=== PATIENT | male | born 1950 | race Caucasian/White ===

== ENCOUNTER → 2016-11-25 | Outpatient (CLI) | payer MEDICARE ==
[2016-11-25 13:17] LABS: Blood Urea Nitrogen 23 mg/dL (9-20); Non-African American GFR(MDRD) >60 (>60 ml/min/1.73 sqM)
--- NOTE | 2016-11-25 15:34 | CT ---
EXAMINATION TYPE: CT angio thoracic/abd aorta DATE OF EXAM: 11/25/2016 2:22 PM COMPARISON: CTA chest September 26, 2015. Additional CT chest November 24, 2015. HISTORY: Dissection of abdominal aorta per order. Known aneurysm progress study. CT DLP: 993.00 mGycm. Automated Exposure Control for Dose Reduction was Utilized. CONTRAST: CTA scan of the entire aorta is performed without oral and without and with IV Contrast, patient inje cted with 100 ml mL of Omnipaque 350. Three-D reconstructed images are created on independent worksta tion and reviewed. FINDINGS: VASCULAR: Ascending aorta measures 3.6 x 3.8 cm in diameter on axial image 29 felt stable from prior. Descending thoracic aorta measures 3.1 cm in diameter felt stable from prior. There is patent three- vessel origin from aortic arch redemonstrated. No significant plaque in the thoracic aorta is present . There is patent celiac axis, SMA, bilateral single renal arteries, and EPHRAIM identified. There is paten t common iliac arteries bilaterally extending into external and internal iliac arteries bilaterally e xtending to common femoral arteries bilaterally without significant plaque or stenosis. No linear hypodensity to suggest dissection is present. LUNGS: The lungs are predominantly clear, there is no concerning parenchymal mass or nodule identifi ed. There is no pleural effusion or pneumothorax seen. The tracheobronchial tree is patent. MEDIASTINUM: There are no new greater than 1 cm noncalcified hilar or mediastinal lymph nodes. There are stable calcified right hilar lymph nodes. No pericardial effusion is seen. Mild cardiomegaly is redemonstrated. Coronary artery calcification is again seen. There is 1.5 x 1.4 cm low dense round l esion left anterior superior mediastinum just below thyroid gland on axial image 11 with [place] u nits averaging 22, differential includes parathyroid adenoma, low dense adenopathy, or cystic fluid c ollection such as duplication cyst. Stability from prior exam suggesting benign or cystic etiology. OTHER: No additional significant abnormality is seen. LIVER/GB: No significant abnormality is appreciated. PANCREAS: No significant abnormality is seen. SPLEEN: No significant abnormality is seen. ADRENALS: No significant abnormality is seen. KIDNEYS: No significant abnormality is seen. BOWEL: Sigmoid colonic diverticulosis is present. GENITAL ORGANS: No gross abnormality is seen. LYMPH NODES: No greater than 1cm abdominal or pelvic lymph nodes are appreciated. OSSEOUS STRUCTURES: Multilevel spurring in the spine is seen. OTHER: There is stable small sized fat-containing umbilical hernia. IMPRESSION: Stable 3.8 cm ectasia to the ascending aorta. No dissection is evident.
== END | disposition home or self-care (01) ==
LOC: RADCTMAIN 12:28
PROVIDERS: ATTEND Internal Medicine Interventional Cardiology
DX: I77.810 Thoracic aortic ectasia (principal)
CPT/HCPCS: 82565; 84520; 75635; 71275; 36415; Q9967

== ENCOUNTER → 2018-02-16 | Outpatient (CLI) | payer MEDICARE ==
[2018-02-16 09:50] LABS: Blood Urea Nitrogen 24 mg/dL (9-20)
--- NOTE | 2018-02-16 12:34 | CT ---
EXAMINATION TYPE: CT angio chest DATE OF EXAM: 02/16/2018 COMPARISON: Previous exams dating to 09/26/2015 HISTORY: Patient has no complaints at time of study. Follow up study for known thoracic aortic aneury sm. CT DLP: 656 mGycm Automated exposure control for dose reduction was used. CONTRAST: CTA scan of the thorax is performed with IV Contrast, patient injected with 100 mL of Isovue 370, pul monary embolism protocol. MIP images are created and reviewed. 3D reconstructed images are created on an independent workstation and reviewed. FINDINGS: LUNGS: The lungs are grossly clear, there is no concerning parenchymal mass or nodule identified. T here is no pleural effusion or pneumothorax seen. The tracheobronchial tree is patent. AORTA: No additional interval change is seen. Ascending aorta again measures approximately 3.8 cm, p roximal descending aorta approximately 3.8 cm. No evident dissection. Aortic root approximately 3.9 c m. Heart is enlarged. Celiac access, superior mesenteric artery, proximal right renal artery are bradley nt. There are 3 super aortic branch vessels. Left and right subclavian, innominate, left and right co mmon carotid arteries are patent proximally. MEDIASTINUM: There is satisfactory enhancement of the pulmonary artery and its branches, there is no CT evidence for pulmonary embolism. There are no greater than 1 cm hilar or mediastinal lymph nodes. No pericardial effusion is seen. OTHER: Cystic focus measuring 17 mm present at the level of the sternoclavicular joint is not signif icantly changed immediately inferior to the thyroid gland. There is a small hiatal hernia present. IMPRESSION: ESSENTIALLY STABLE FINDINGS.
== END | disposition home or self-care (01) ==
LOC: RADCTMAIN 09:13
PROVIDERS: ATTEND Internal Medicine Interventional Cardiology
DX: I71.2 Thoracic aortic aneurysm, without rupture (principal)
CPT/HCPCS: 82565; 84520; 71275; 36415; Q9967

== ENCOUNTER → 2018-04-30 | Outpatient (CLI) | payer MEDICARE ==
--- NOTE | 2018-04-30 17:11 | XR ---
EXAMINATION TYPE: XR ankle complete LT DATE OF EXAM: 04/30/2018 COMPARISON: NONE HISTORY: Ankle pain TECHNIQUE: 3 views FINDINGS: There is an Achilles calcaneal spur. Ankle mortise is anatomic. I see no fracture nor dislo cation. IMPRESSION: Calcaneal spurring. No fracture seen.
== END | disposition home or self-care (01) ==
LOC: RADXRMAIN 16:57
PROVIDERS: ATTEND Family Medicine
DX: M77.32 Calcaneal spur, left foot (principal); R52 Pain, unspecified

== ENCOUNTER → 2019-01-12 | Outpatient (CLI) | payer MEDICARE ==
--- NOTE | 2019-01-13 07:52 | CT ---
EXAMINATION TYPE: CT angio chest DATE OF EXAM: 01/12/2019 COMPARISON: CTA chest February 16, 2018 and older studies. HISTORY: Follow up ascending aortic aneurysm. CT DLP: 420 mGycm. Automated Exposure Control for Dose Reduction was Utilized. CONTRAST: CTA scan of the thorax is performed with IV Contrast, patient injected with 100 mL of Isovue 370, pul monary embolism protocol. Three-D reconstructed images are created on independent workstation and rev iewed. FINDINGS: LUNGS: The lungs are grossly clear, there is no concerning parenchymal mass or nodule identified. T here is no pleural effusion or pneumothorax seen. The tracheobronchial tree is patent. MEDIASTINUM: There is satisfactory enhancement of the pulmonary artery and its branches, there is no CT evidence for pulmonary embolism. There are no greater than 1 cm hilar or mediastinal lymph nodes. No cardiomegaly or pericardial effusion is seen. Ascending aorta measures up to 3.8 cm in diameter at pulmonary artery bifurcation axial image 27 not significantly changed from most recent prior stud y. Stable 1.5 cm low dense possible cystic lesion posterior to left sternoclavicular joint at three-v essel origin axial image 11 unchanged back through 2016 study presumed benign. OTHER: Stable small hiatal hernia. Multilevel anterior bridging osteophytes in thoracic spine are red emonstrated. IMPRESSION: Stable 3.8 cm aneurysm of the ascending aorta. No significant change from most recent kalani or.
== END | disposition home or self-care (01) ==
LOC: RADCTMAIN 11:40
PROVIDERS: ATTEND Internal Medicine Interventional Cardiology
DX: I71.2 Thoracic aortic aneurysm, without rupture (principal)
CPT/HCPCS: 82565; 84520; 71275; 36415; Q9967

== ENCOUNTER → 2020-01-17 | Outpatient (CLI) | payer MEDICARE ==
--- NOTE | 2020-01-17 11:53 | CT ---
EXAMINATION TYPE: CT angio chest DATE OF EXAM: 01/17/2020 COMPARISON: 01/12/2019 HISTORY: 69-year-old male follow-up thoracic aortic aneurysm without rupture TECHNIQUE: Contiguous axial scanning of the chest performed with IV Contrast, patient injected with 1 00 mL of Isovue 370. Coronal/sagittal MIP reconstructions performed. 3-D reconstructions generated on a dedicated workstation. CT DLP: 329.8 mGycm Automated exposure control for dose reduction was used. FINDINGS: Heart upper limits of normal in size without pericardial effusion. Aortic root ectatic at 3.9 cm versus 3.8 cm, previously. Ascending aorta is ectatic at 3.9 cm versus 4.0 cm, previously. Proximal arch ectatic at 3.9 cm, unchanged. Conventional arterial vessel branching anatomy. Upper descending thoracic aorta ectatic at 3.2 cm, unchanged. Mid descending thoracic aorta mildly aneurysmal at 3.1 cm, unchanged. Distal descending thoracic aorta ectatic at 2.9 cm, unchanged. Upper abdominal aorta borderline ectatic at 2.5 cm, unchanged. No evidence for aortic dissection. No thoracic lymphadenopathy CT size criteria. No consolidation or pleural effusion. Visualized upper abdomen shows a tiny hiatal hernia and stable 1 cm cortical cyst lateral right kidne y. Bones: Bridging anterior endplate spondylosis thoracic spine suggesting DISH. IMPRESSION: 1. ESSENTIALLY STABLE ECTASIA ASCENDING AORTA MEASURING UP TO 3.9 CM (VERSUS 4.0 CM, PREVIOUSLY RE MEASURED USING IDENTICAL MEASUREMENT TECHNIQUE). 2. DESCENDING THORACIC AORTA IS STABLE BORDERLINE ANEURYSMAL AT 3.2 CM. 3. TINY HIATAL HERNIA.
== END | disposition home or self-care (01) ==
LOC: RADCTMAIN 09:53
PROVIDERS: ATTEND Internal Medicine Interventional Cardiology
DX: I71.2 Thoracic aortic aneurysm, without rupture (principal); K44.9 Diaphragmatic hernia without obstruction or gangrene
CPT/HCPCS: 82565; 84520; 71275; 36415; Q9967

== ENCOUNTER → 2021-07-27 | Outpatient (CLI) | payer MEDICARE ==
[2021-07-27 11:27] LABS: African American GFR (CKD) >90 (>60 ml/min/1.73 sqM); Blood Urea Nitrogen 28 mg/dL (9-20); Non-African American GFR(CKD) 87 (>60 ml/min/1.73 sqM)
--- NOTE | 2021-07-27 13:54 | CT ---
CT CHEST FOR PULMONARY EMBOLISM. EXAMINATION TYPE: CT angio chest DATE OF EXAM: 07/27/2021 INDICATION: Thoracic aortic aneurysm without rupture CT DLP: 331 mGycm, Automated exposure control for dose reduction was used. CONTRAST: Patient injected with 100 mL of Isovue 370. COMPARISON: 01/17/2020 TECHNIQUE: CT of the chest is performed on a spiral scan at 2 mm thick sections. Study is performed with intravenous contrast timed for evaluation for pulmonary embolism. This will limit additional po rtions of the evaluation. 3-D MIP images reconstructed by the technologist are reviewed on the compu ter in the coronal and sagittal planes. FINDINGS: No persistent filling defects are evident to suggest an acute pulmonary embolism. No mediastinal or hilar adenopathy enlarged by CT criteria is evident. The ascending aorta diameter at the level of the main pulmonary artery is 3.9 cm. The main pulmonary artery diameter at the bifur cation is 2.82 cm. Lung windows are clear. Limited CT section through the upper abdomen are unremarkable. IMPRESSIONS: 1. No acute pulmonary embolism.
== END | disposition home or self-care (01) ==
LOC: RADCTMAIN 10:49
PROVIDERS: ATTEND Internal Medicine Interventional Cardiology
DX: I71.2 Thoracic aortic aneurysm, without rupture (principal)
CPT/HCPCS: 82565; 84520; 71275; 36415; Q9967

== ENCOUNTER 2023-12-18 05:36 | Day surgery (SDC) | payer MEDICARE ==
--- NOTE | 2023-12-17 14:13 | HP ---
HISTORY AND PHYSICAL Surgery is scheduled for 12/18/2023. HISTORY OF PRESENT ILLNESS: Hermes Vickers is a 72-year-old patient seen with progressive left shoulder pain. We discussed options regarding treatment. The patient elected to proceed with left shoulder arthroscopy. Consent was obtained. Preoperative cardiac clearance was provided by Dr. Benedict. PAST MEDICAL HISTORY: Cardiovascular disease. PAST SURGICAL HISTORY: Knee arthroscopy. DAILY MEDICATIONS: Aspirin. ALLERGIES: None. SOCIAL HISTORY: Denies tobacco use. PHYSICAL EVALUATION OF THE LEFT SHOULDER: Flexion is 140 degrees. Abduction is 100 degrees. External rotation is 30 degrees with pain and weakness. Tenderness along the anterior lateral acromion and rotator cuff insertion site. Impingement sign is positive at 90 degrees. Cross-body adduction sign is positive. Drop-arm sign is positive. Distal neurovascular exam is intact. IMAGING STUDIES: Left shoulder radiographs revealed a type 2 acromion along with acromioclavicular joint osteoarthritis. Left shoulder MRI revealed a rotator cuff tear, partial biceps tendon tear, moderate osteoarthritis. IMPRESSION: 1. Left shoulder impingement with partial rotator cuff tear. 2. Left shoulder bicipital tendinitis. 3. Left shoulder moderate osteoarthritis. PLAN: Left shoulder arthroscopy with subacromial decompression, rotator cuff repair, Brody, and biceps tenotomy. MMODL / IJN: [id number] /
[2023-12-18] MEDS ORDERED: LIDOCAINE 1% (10MG/ML) FOR IV START INTRADERMA PRN (06:05)
[2023-12-18] MEDS: LACTATED RINGERS 1,000 ML IV SCH (06:35)
[2023-12-18] MEDS: ONDANSETRON 4 MG/2 ML VIAL IVP ONE (06:37)
[2023-12-18] MEDS: DEXAMETHASONE SOD PHOSPHATE 4 MG/ML 1 ML VIAL IV ONE (06:37)
[2023-12-18] MEDS: MIDAZOLAM 2 MG/2 ML VIAL IV PRN (06:53)
[2023-12-18] MEDS ORDERED: HYDROmorphone 0.5 MG/0.5 ML SYRINGE IVP PRN (07:00)
[2023-12-18] MEDS ORDERED: LIDOCAINE 1% INJ 10MG/ML (20 ML MDV) ONE (07:22)
[2023-12-18] MEDS ORDERED: ROPIVACAINE 5 MG/ML 30 ML VIAL ONE (07:22)
[2023-12-18] MEDS ORDERED: PROPOFOL 10 MG/ML 20 ML VIAL IV ONE (07:22)
[2023-12-18] MEDS ORDERED: PHENYLEPHRINE 10 MG/ML VIAL ONE (07:22)
[2023-12-18] MEDS ORDERED: DEXAMETHASONE SOD PHOSPHATE 4 MG/ML 1 ML VIAL ONE (07:22)
[2023-12-18] MEDS ORDERED: fentaNYL (PF) 50 MCG/ML 2 ML AMP ONE (07:22)
[2023-12-18] MEDS ORDERED: SUCCINYLCHOLINE CHLORIDE 200 MG/10 ML VIAL IV ONE (07:22)
--- NOTE | 2023-12-18 09:06 | P.OP ---
Date of Procedure: 12/18/23 Preoperative Diagnosis: Left shoulder impingement Postoperative Diagnosis: 1. Left shoulder rotator cuff tear 2. Left shoulder impingement 3. Left shoulder acromioclavicular joint osteoarthritis 4. Left shoulder partial biceps tendon tear/bicipital tendinitis 5. Left shoulder superficial labral tear Procedure(s) Performed: 1. Left shoulder arthroscopic rotator cuff repair 2. Left shoulder arthroscopic subacromial decompression 3. Left shoulder arthroscopic Brody procedure 4. Left shoulder arthroscopic biceps tenotomy 5. Left shoulder arthroscopic debridement labral tear Implants: 1Arthrex 5.5 swivel lock anchor Anesthesia: GETA, regional (Interscalene block) Surgeon: Ifeanyi Castañeda Machine Stone Polisher #1: Eloy Mittal Estimated Blood Loss (ml): 8 Pathology: none sent Condition: stable Disposition: PACU Indications for Procedure: 72-year-old patient seen with progressive left shoulder pain. After having treatment options discussed, he elected to proceed with arthroscopy. Operative Findings: See description of procedure Description of Procedure: Patient underwent an interscalene block by department of anesthesia. The patient was then taken to the operative suite. The patient underwent a general anesthetic by the department of anesthesia. The patient was placed into a lateral position and secured. There was appropriate padding of the bony pro minence. Left shoulder was then prepped and draped in normal sterile orthopedic fashion. We placed the extremity in 10 pounds of longitudinal traction. A posterior incision was now made for a posterior working portal site. The trocar and cannula were inserted into the glenohumeral joint. Arthroscopy was initiated. Spinal needle was now inserted anteriorly, to ascertain the anterior working portal site. An incision was now made in that area, a trocar was inserted followed by a probe. There was partial tearing and hyperemia long head biceps tendon. There was some superficial tearing of the anterior labrum. There was mild grade I chondromalacia of the humeral head. I debrided out the superficial labral tear. I performed arthroscopic biceps tenotomy. The residual labrum was probed and was found to be stable. Instruments were now removed from the glenohumeral joint. Utilizing the posterior working portal site, the trocar and cannula were inserted into the subacromial space. Arthroscopy initiated. I made an incision 2 fingerbreadths lateral to the acromion. I introduced my trocar followed by my ArthroCare ablator. I now began ablating thick subacromial bursal tissue, which exposed the undersurface of the anterior acromion. There was diminished subacromial space. There was a very prominent anterior acromion. A motorized bur was introduced and a subacromial decompression was performed. I also excised some osteophytes off the inferior aspect of the distal clavicle. The AC joint was visualized and noted to be fairly arthritic. The motorized bur was introduced in the anterior portal site and a Brody procedure was performed without difficulty removing 8 mm of bone off the distal clavicle, decompressing the AC joint nicely. I turned my attention to the rotator cuff. There was a 1 cm rotator cuff tear. I debrided the margins getting down to stable tendon tissue. I introduced my motorized bur and abraded the footprint area, getting some petechial bleeding. I passed 2 inverted mattress sutures through good bites of rotator cuff tendon with the assistance of Gamal BRANDON. I punched a hole in the footprint area for insertion of an anchor. All 4 limbs of suture were passed through the eyelet of an Arthrex 5.5 swivel lock anchor. I placed the eyelet into our prepunched hole. I held in position while Gamal BRANDON tensioned all 4 limbs of suture and deployed the anchor with good fixation noted. All residual suture limbs were now clipped. We had good compression of the tendon along the entire footprint. Instruments now removed from the portal sites. All portal sites were approximated with nylon suture. Sterile dressings were applied followed by a shoulder sling. Eloy BRANDON assisted in this complex case. The patient was awakened, transferred to a bed, and taken to recovery in stable condition.
[2023-12-18 09:28] VITALS: TEMP 97
[2023-12-18 09:59] VITALS: RESP 16
[2023-12-18 10:00] VITALS: BP 141/77; PULSE 53
--- NOTE | 2023-12-18 20:31 | P.ANPRN ---
Procedure Note - Anesthesia - Nerve Block Performed Left Interscalene Single Time Out Performed: Yes Date of Procedure: 12/18/23 Procedure Start Time: 06:52 Procedure Stop Time: 06:55 Location of Patient: PreOp Indication: Acute Post-Operative Pain, Requested by Surgeon Sedation Type: Sedate with meaningful contact maintained Preparation: Sterile Prep Position: Supine Needle Types: Pajunk Needle Gauge: 21 Ultrasound used to visualize needle placement: Yes Ultrasound used to observe medication spread: Yes Blood Aspirated: No Pain Paresthesia on Injection Noted: No Resistance on Injection: Normal Image Stored and Saved: Yes Events: Uneventful and Well Tolerated (Ropivacaine 0.5% 20 cc plus dexamethasone 4mg)
== END 2023-12-18 10:32 | disposition home or self-care (01) ==
LOC: OR 05:36
PROVIDERS: ATTEND Orthopaedic Surgery
DX: S46.212A Strain of muscle, fascia and tendon of other parts of biceps, left arm, initial encounter (principal); M19.012 Primary osteoarthritis, left shoulder; M25.812 Other specified joint disorders, left shoulder; I25.10 Atherosclerotic heart disease of native coronary artery without angina pectoris; M75.102 Unspecified rotator cuff tear or rupture of left shoulder, not specified as traumatic; M75.22 Bicipital tendinitis, left shoulder; Z79.82 Long term (current) use of aspirin; X58.XXXA Exposure to other specified factors, initial encounter
CPT/HCPCS: 64415; 29824; 29826; 29827; 29828; C1713 ×2; J2250; J0330; J1100; J0690; J2405; J2001; J3010; J2795; J2704; J2371

== ENCOUNTER → 2024-04-16 | Outpatient (CLI) | payer MEDICARE ==
--- NOTE | 2024-04-16 21:26 | MR ---
EXAMINATION TYPE: MR Prostate wo/w con DATE OF EXAM: 04/16/2024 8:37 AM COMPARISON: None. CLINICAL INDICATION:Male, 73 years old with history of R97.20 ELEVATED PROSTATE SPECIFIC ANTIGEN [PSA ]; Elevated PSA. TECHNIQUE: Multi-planar, multi-sequence imaging of the pelvis is performed prior to and following the uncomplicated administration of bolus intravenous gadolinium. CONTRAST: 9 Gadavist Interpretive Criteria: PI-RADS v2.1 SERUM PSA: 5-15-24 = 5.61 4-2-24 = 5.0 SURGICAL PATHOLOGY: No data available. FINDINGS: Prostatic dimensions: 5.5 x 6.3 x 4.0 cm. Ellipsoid Volume:72.57 (PSA density=0.08 ng/mL/mL) CENTRAL GLAND (Central and Transition Zones/CZ+TZ): Multiple bilateral, heterogenous appearing hypertrophic stromal nodules, without suspicious lesion. M edian lobe hypertrophy with protrusion into the base of the bladder. (PI-RADS 2) PERIPHERAL ZONE (PZ): Bilateral linear, indistinct wedgelike areas of low ADC, and low T2 signal, No evidence of masslike a bnormality, or localized perfusional hypervascularity, to further suggest a focus of clinically signi ficant prostate cancer. (PI-RADS 2) SEMINAL VESICLES (SV): Symmetric and unremarkable. PERIPROSTATIC TISSUES: Unremarkable. LYMPH NODES: No enlarged pelvic lymph node. REMAINING PELVIS: Bladder wall is within normal limits given distention. No abnormal free or organized intrapelvic fluid collection. No pathologic bowel dilation or mural thickening. Colonic diverticula are present. No hernia visualized OSSEOUS STRUCTURES: No suspicious osseous abnormality. IMPRESSION: 1. No specific features for high-risk prostate cancer. Maximum PI-RADS score: 2. 2. Moderate BPH, estimated gland volume 72.57 mL. 3. No suspicious osseous lesion. No lymphadenopathy. No evidence of prostate adenocarcinoma involving the periprostatic tissues.
== END | disposition home or self-care (01) ==
LOC: RADMRIMAIN 07:15
PROVIDERS: ATTEND Urology
DX: N40.0 Benign prostatic hyperplasia without lower urinary tract symptoms (principal); R97.20 Elevated prostate specific antigen [PSA]
CPT/HCPCS: 72197; A9585